=== PATIENT | male | born 1955 | race Caucasian/White ===

== ENCOUNTER 2018-03-20 13:23 | Day surgery (SDC) | payer OTHER ==
[~2018-03-20] VITALS: Ht 190.5 cm; Wt 128.9 kg
[~2018-03-20 13:23] MED LIST: AMLO5; ASPI325; ATEN50; CHLO25B PO; Catapres0.1 MG PO; HYDCHL25; Klor-Con M1010 MEQ PO; LISI20; LOSARTAN-HCTZ1 EAC1 PO; METO100ER PO; SIMV10 PO; TELM80
== END 2018-03-20 15:13 | disposition home or self-care (01) ==
LOC: ORSCSDS 13:23
PROVIDERS: Internal Medicine Gastroenterology
PROC: 0DBM8ZX Excision of Descending Colon, Via Natural or Artificial Opening Endoscopic, Diagnostic (ICD-10-PCS; principal; 2018-03-20 14:45)
PROC: 0DBL8ZX Excision of Transverse Colon, Via Natural or Artificial Opening Endoscopic, Diagnostic (ICD-10-PCS; principal; 2018-03-20 14:45)
DX: R19.5 Other fecal abnormalities (principal); D12.3 Benign neoplasm of transverse colon; D12.4 Benign neoplasm of descending colon; K64.8 Other hemorrhoids; K57.30 Diverticulosis of large intestine without perforation or abscess without bleeding; I10 Essential (primary) hypertension; E78.5 Hyperlipidemia, unspecified; I25.10 Atherosclerotic heart disease of native coronary artery without angina pectoris; G47.33 Obstructive sleep apnea (adult) (pediatric); Z79.82 Long term (current) use of aspirin; Z79.899 Other long term (current) drug therapy
CPT/HCPCS: 88305; J2250; J7120

== ENCOUNTER → 2018-11-22 | Outpatient (CLI) | payer OTHER ==
[2018-11-27 14:12] LABS: M-SPIKE, % Not Observed % (Not Observed); PROTEIN,TOTAL,URINE 9.3 mg/dL (Not Estab.)
== END | disposition home or self-care (01) ==
LOC: LAB EV 04:00
PROVIDERS: Physician Assistant
DX: D89.2 Hypergammaglobulinemia, unspecified (principal); E88.09 Other disorders of plasma-protein metabolism, not elsewhere classified
CPT/HCPCS: 84156; 84166

== ENCOUNTER 2020-08-04 20:27 | Emergency (ER) | payer OTHER ==
[~2020-08-04] VITALS: Ht 190.5 cm; Wt 122.5 kg
[2020-08-04 20:58] LABS: Source, Urine Clean Catch
[2020-08-04 20:59] LABS: BASOPHILS ABSOLUTE AUTO 0.06 K/mm3 (0.00-0.23); BASOPHILS PERCENT AUTO 0 % (0-2); EOSINOPHILS ABSOLUTE AUTO 0.01 K/mm3 (0.00-0.68); EOSINOPHILS PERCENT AUTO 0 % (0-6); Hematocrit 52.5 % (37.0-53.0); Hemoglobin 18.2 g/dL (13.5-17.5); IMMATURE GRAN ABSOLUTE AUTO 0.05 K/mm3 (0.00-0.10); IMMATURE GRAN PERCENT AUTO 0 % (0-1); LYMPHOCYTES ABSOLUTE AUTO 1.82 K/mm3 (0.84-5.20); LYMPHOCYTES PERCENT AUTO 12 % (21-46); MONOCYTES ABSOLUTE AUTO 1.68 K/mm3 (0.16-1.47); MONOCYTES PERCENT AUTO 11 % (4-13); Mean Corpuscular HGB 30.1 pg (26.0-34.0); Mean Corpuscular HGB Conc 34.7 g/dL (31.5-36.5); Mean Corpuscular Volume 87 fL (80-100); Mean Platelet Volume 9.2 fL (9.1-12.4); NEUTROPHILS ABSOLUTE AUTO 11.49 K/mm3 (1.96-9.15); NEUTROPHILS PERCENT AUTO 76 % (41-73); Platelet Count 287 K/mm3 (150-400); RDW Coefficient Variation 12.7 % (11.7-14.2); RDW Standard Deviation 40.5 fL (35.1-46.3); Red Blood Cell Count 6.05 M/mm3 (4.30-5.90); White Blood Cell Count 15.11 K/mm3 (4.00-11.30)
[2020-08-04 21:01] LABS: Appearance, Urine Clear (Clear); Bilirubin, Urine Neg (Neg); Blood, Urine 4+ (Neg); Color, Urine Yellow (P-Yellow); Glucose Qualitative, Urine Neg (Neg); Ketones, Urine 2+ (Neg); Leukocyte Esterase, Urine 1+ (Neg); Nitrite, Urine Neg (Neg); Protein, Urine 3+ (Neg); Specific Gravity, Urine 1.015 (1.003-1.022); Urobilinogen, Urine 1+ (Normal)
[2020-08-04 21:14] LABS: Bacteria Few /hpf; Squamous Epithelial Cells Rare /hpf (Few)
[2020-08-04 21:16] LABS: Albumin, Blood 3.8 g/dL (3.4-5.0); Albumin/Globulin Ratio 0.9 (0.8-1.8); Bilirubin, Total 0.8 mg/dL (0.1-1.0); Bun/Creatinine Ratio 21.8 (12.0-20.0); Calcium, Blood 10.1 mg/dL (8.5-10.1); Creatinine, Blood 1.33 mg/dL (0.60-1.20); Globulin, Blood 4.4 g/dL (2.2-4.0); Potassium, Blood 2.7 mmol/L (3.5-5.5); Total Protein, Blood 8.2 g/dL (6.4-8.2)
[2020-08-04] MEDS ORDERED: ONDA4ODT MM (23:52)
[2020-08-04] MEDS ORDERED: Norco 10-325 T1 EACH PO (23:52)
== END 2020-08-05 00:37 | disposition home or self-care (01) ==
LOC: ER 20:27
PROVIDERS: Physician Assistant
DX: N13.2 Hydronephrosis with renal and ureteral calculous obstruction (principal); I10 Essential (primary) hypertension; I25.10 Atherosclerotic heart disease of native coronary artery without angina pectoris; E78.5 Hyperlipidemia, unspecified; Z79.82 Long term (current) use of aspirin; Z79.899 Other long term (current) drug therapy
CPT/HCPCS: 36415; 74176; 80053; 81001; 83690; 85025; 87086; 93005; 93010; 96365; 96366; 96368; 96375; 96376; 99284-25; A9270; A9270-GY; J1170; J1885; J2405; J3475; J3480; J7030; J7120

== ENCOUNTER → 2024-03-11 | Outpatient (CLI) | payer OTHER ==
[~2024-03-11] MED LIST changes: +Norco 10-325 T1 EACH PO; +ONDA4ODT MM
[2024-03-11 16:24] LABS: BASOPHILS ABSOLUTE AUTO 0.13 K/mm3 (0.00-0.23); BASOPHILS PERCENT AUTO 2 % (0-2); EOSINOPHILS ABSOLUTE AUTO 0.39 K/mm3 (0.00-0.68); EOSINOPHILS PERCENT AUTO 5 % (0-6); Hematocrit 47.7 % (37.0-53.0); Hemoglobin 16.5 g/dL (13.5-17.5); IMMATURE GRAN ABSOLUTE AUTO 0.02 K/mm3 (0.00-0.10); IMMATURE GRAN PERCENT AUTO 0 % (0-1); LYMPHOCYTES PERCENT AUTO 31 % (21-46); MONOCYTES PERCENT AUTO 10 % (4-13); Mean Corpuscular HGB 30.8 pg (26.0-34.0); Mean Corpuscular HGB Conc 34.6 g/dL (31.5-36.5); Mean Corpuscular Volume 89 fL (80-100); Mean Platelet Volume 10.3 fL (9.1-12.4); NEUTROPHILS ABSOLUTE AUTO 4.45 K/mm3 (1.96-9.15); NEUTROPHILS PERCENT AUTO 53 % (41-73); Platelet Count 292 K/mm3 (150-400); RDW Coefficient Variation 13.2 % (11.7-14.2); RDW Standard Deviation 42.8 fL (35.1-46.3); Red Blood Cell Count 5.36 M/mm3 (4.30-5.90); White Blood Cell Count 8.39 K/mm3 (4.00-11.30)
[2024-03-11 17:20] LABS: Alanine Aminotransfer (ALT/SGP 35 U/L (12-78); Albumin, Blood 3.8 g/dL (3.4-5.0); Alk Phos 70 U/L (50-136); Anion Gap 9 mmol/L (3-11); Aspartate Aminotrans (AST/SGOT 19 U/L (12-37); Bilirubin, Total 0.5 mg/dL (0.1-1.0); Blood Urea Nitrogen 28 mg/dL (8-24); Bun/Creatinine Ratio 20.7 (12.0-20.0); CHOL/HDL RATIO 3.6; CO2, Blood 25 mmol/L (21-32); Calcium, Blood 9.6 mg/dL (8.5-10.1); Chloride, Blood 108 mmol/L (98-108); Cholesterol 135 mg/dL (50-200); Creatinine, Blood 1.35 mg/dL (0.60-1.20); Globulin, Blood 3.8 g/dL (2.2-4.0); Glomerular Filtration Rate 57 (60-); Glucose, Blood 102 mg/dL (70-99); HDL Cholesterol 38 mg/dL (>39); LDL/HDL RATIO 1.9; Low Density Lipoprotein Chol 74 mg/dL (0-110); Potassium, Blood 3.5 mmol/L (3.5-5.5); Sodium, Blood 138 mmol/L (136-145); Total Protein, Blood 7.6 g/dL (6.4-8.2); Triglycerides 116 mg/dL (30-160); Very Low Density Lipoprot Chol 23 mg/dL (6-32)
== END | disposition home or self-care (01) ==
LOC: LAB 15:29 → LAB SHORT 15:29
PROVIDERS: Nurse Practitioner Family
DX: I10 Essential (primary) hypertension (principal); E66.01 Morbid (severe) obesity due to excess calories
CPT/HCPCS: 80053; 80061; 83880; 84443; 85025

== ENCOUNTER 2025-02-11 06:39 | Day surgery (SDC) | payer OTHER ==
[~2025-02-11] VITALS: Ht 190.5 cm; Wt 111.2 kg
[2025-02-11] VITALS (15 sets, daily range): BP systolic 103–150; BP diastolic 65–84
[~2025-02-11 06:39] MED LIST changes: -AMLO5; +AMLO5 PO; -ASPI325; +ASPI325 PO; -LISI20; +LISI20 PO; +Lactated Ringer's 1,000 ML IV SCH; +SPIR25 PO
[2025-02-11] MEDS ORDERED: HYDCHL25 PO (06:51)
--- NOTE | 2025-02-11 07:10 | NUR ---
History, Chart, Medications and Allergies reviewed before start of procedure. Patient confirms NPO status and agrees with scheduled surgery. Reports taking all colon prep with clear results. at bedside. agrees to drive patient home and patient agrees no driving for 24 hours post-sedation.
[2025-02-11] MEDS ORDERED: propofoL 40 ML IV ONE (07:18)
--- NOTE | 2025-02-11 07:37 | NUR ---
02/11/25 0737 Mio Chowdary CONFIRMED AND REVIEWED H&P, MEDCICATIONS, ALLERGIES, MEDICAL HISTORY, RESPIRATORY HISTORY, VITAL SIGNS, 3-LEAD EKG, CONSENTS, AND PHYSICIAN ORDERS. PATIENT CONFIRMS NPO STATUS AND AGREES WITH SCHEDULED PROCEDURE. MONITOR INTACT WITH CONTINUOUS PULSE OXIMETRY, CAPNOGRAPHY, 3-LEAD EKG, INTERMITTENT BP. SUPPLEMENTAL O2 TO BE TITRATED THROUGHOUT PROCEDURE TO MAINTAIN O2 SATURATION ABOVE 90%. PATIENT DETERMINED TO BE ASA APPROPRIATE FOR PROPOFOL SEDATION PRIOR TO START OF PROCEDURE BY DR. CORNELL.
--- NOTE | 2025-02-11 08:19 | NUR ---
Discharge instructions reviewed with patient. Patient verbalizes understanding. Copy given to patient to take home. Patient States Post-Procedure ride home has been arranged. Discharged via wheelchair to private car for ride home.
== END 2025-02-11 08:20 | disposition home or self-care (01) ==
LOC: ORSCMMR 06:39 → ORD 07:30 → ORSCMMR 07:30
PROVIDERS: Internal Medicine Gastroenterology
PROC: 0DJD8ZZ Inspection of Lower Intestinal Tract, Via Natural or Artificial Opening Endoscopic (ICD-10-PCS; principal; 2025-02-11 07:30)
DX: K62.5 Hemorrhage of anus and rectum (principal); K57.30 Diverticulosis of large intestine without perforation or abscess without bleeding; I10 Essential (primary) hypertension; E78.00 Pure hypercholesterolemia, unspecified; G47.30 Sleep apnea, unspecified; I25.10 Atherosclerotic heart disease of native coronary artery without angina pectoris; Z79.82 Long term (current) use of aspirin; Z79.899 Other long term (current) drug therapy
CPT/HCPCS: J2704; J7120

== ENCOUNTER → 2025-04-21 | Outpatient (CLI) | payer OTHER ==
[~2025-04-21] MED LIST changes: +HYDCHL25 PO; -Lactated Ringer's 1,000 ML IV SCH
== END ==
LOC: LAB SHORT 11:05 → LAB 11:05
PROVIDERS: Nurse Practitioner Family
DX: Z12.5 Encounter for screening for malignant neoplasm of prostate (principal)
CPT/HCPCS: G0103

== ENCOUNTER 2025-09-13 05:12 | Observation (INO) | payer OTHER ==
[~2025-09-13] VITALS: Ht 190.5 cm; Wt 109.7 kg
[2025-09-13] VITALS (23 sets, daily range): BP systolic 148–198; BP diastolic 81–112
[2025-09-13 05:25] LABS: BASOPHILS ABSOLUTE AUTO 0.09 K/mm3 (0.00-0.23); BASOPHILS PERCENT AUTO 1 % (0-2); EOSINOPHILS ABSOLUTE AUTO 0.20 K/mm3 (0.00-0.68); EOSINOPHILS PERCENT AUTO 2 % (0-6); Hematocrit 51.4 % (37.0-53.0); Hemoglobin 18.0 g/dL (13.5-17.5); IMMATURE GRAN ABSOLUTE AUTO 0.03 K/mm3 (0.00-0.10); IMMATURE GRAN PERCENT AUTO 0 % (0-1); LYMPHOCYTES ABSOLUTE AUTO 2.37 K/mm3 (0.84-5.20); LYMPHOCYTES PERCENT AUTO 22 % (21-46); MONOCYTES ABSOLUTE AUTO 0.82 K/mm3 (0.16-1.47); MONOCYTES PERCENT AUTO 8 % (4-13); Mean Corpuscular HGB Conc 35.0 g/dL (31.5-36.5); Mean Corpuscular Volume 89 fL (80-100); NEUTROPHILS ABSOLUTE AUTO 7.06 K/mm3 (1.96-9.15); NEUTROPHILS PERCENT AUTO 67 % (41-73); NRBC ABSOLUTE 0.00 K/mm3 (0.00-0.02); NRBC Auto 0.0 /100 WBC (0.0-0.2); Platelet Count 285 K/mm3 (150-400); RDW Coefficient Variation 13.3 % (11.7-14.2); RDW Standard Deviation 43.3 fL (35.1-46.3)
[2025-09-13 05:47] LABS: Alanine Aminotransfer (ALT/SGP 40.0 U/L (12-78); Albumin, Blood 4.1 g/dL (3.4-5.0); Albumin/Globulin Ratio 0.9 (0.8-1.8); Anion Gap 9.0 mmol/L (3-11); Aspartate Aminotrans (AST/SGOT 24.0 U/L (12-37); Bilirubin, Total 0.4 mg/dL (0.1-1.0); Blood Urea Nitrogen 25.0 mg/dL (8-24); CO2, Blood 23.0 mmol/L (21-32); Calcium, Blood 10.9 mg/dL (8.5-10.1); Chloride, Blood 105.0 mmol/L (98-108); Creatinine, Blood 1.33 mg/dL (0.60-1.20); Globulin, Blood 4.5 g/dL (2.2-4.0); Glucose, Blood 114.0 mg/dL (70-99); Potassium, Blood 3.3 mmol/L (3.5-5.5); Sodium, Blood 134.0 mmol/L (136-145); Total Protein, Blood 8.6 g/dL (6.4-8.2)
[2025-09-13] MEDS ORDERED: ASPI81CH PO (06:18)
[2025-09-13 06:22] LABS: Thyroid Stimulating Hormone 2.95 uIU/mL (0.360-4.800)
[2025-09-13] MEDS ORDERED: FLU VACC TS2025(65UP)/MF59C/PF 45 MCG/0.5 ML SYRINGE IM SCH (08:05)
[2025-09-13] MEDS ORDERED: Potassium Chloride 10 Meq Tablet SA PO ONE ×2 (08:05→13:35)
[2025-09-13] MEDS ORDERED: HydrALAZINE HCl 20 MG / ML 1ML Vial IV PRN (08:05)
[2025-09-13] MEDS ORDERED: Enoxaparin 40 MG/0.4 ML SYR SC SCH (09:00)
[2025-09-13 10:25] LABS: CHOL/HDL RATIO 2.9; Cholesterol 135 mg/dL (50-200); HDL Cholesterol 47 mg/dL (>39); LDL/HDL RATIO 1.7; Low Density Lipoprotein Chol 79 mg/dL (0-110); Triglycerides 46 mg/dL (30-160); Very Low Density Lipoprot Chol 9 mg/dL (6-32)
[2025-09-13] MEDS ORDERED: Aminophylline 250MG / 10ML 10 ML Vial ONE (12:36)
--- NOTE | 2025-09-13 14:22 | NUR ---
SPOKE WITH DR HENLEY REGARDING ELEVATED MANUAL BP READING. OKAYED FOR PRN HYDRALAZINE DOSE TO BE GIVEN OUTSIDE ORDERED PARAMETERS.
--- NOTE | 2025-09-13 17:23 | NUR ---
SHIFT SUMMARY PATIENT ADMITTED TO MEDICAL FLOOR FROM ED. ONE EPISODE OF REPORTED CHEST PAIN WHILE RECEIVING [place], ELEVATED BLOOD PRESSURES DURING THIS TIME. NO CHANGES TO CARDIAC MONITORING AT THIS TIME. MEDICATED WITH HOME MEDS FOR BP AND ALSO ONE PRN DOSE, CONTINUING TO MONITOR BP'S CLOSELY. NOTIFIED DR HENLEY WHO AGREED WITH THIS PLAN. INDEPENDENT IN ROOM. A/O X4. ABLE TO MAKE NEEDS KNOWN. CALL LIGHT IN REACH.
--- NOTE | 2025-09-13 19:46 | NUR ---
SHIFT ASSESSMENT NOTE: AT AROUND 1930 PATIENT CALLED, RN CHECK ON PATIENT. PATIENT REPORTS TIGHTNESS TO MID-STERNUM, HIS FACE IS FLUSHED. PATIENT STATED, "I HAVE BEEN HAVING THIS EPISODE NORMALLY AT NIGHT, THAT'S THE REASON I CAME IN TO FURTHER ASSESS THIS SYMPTOMS." THIS RN CALLED LAST IRONERJACKSON. PER JACKSON UPON REVIEWING THE PATIENT STRIPS THERE IS AN ST CHANGES FROM 0.2 AT 1840 TO 1.4 AT 1937. VITALS TAKEN; RA 193/112 c HR OF 77 BPM, LA 184/100 c HR OF [address] JIN c THIS CONCERN. PER DR. JIN HE WILL REVIEW PATIENT CHART AND PLACE AN ORDER.
[2025-09-13] MEDS ORDERED: HydrALAZINE HCl 20 MG / ML 1ML Vial IV ONE (20:00)
[2025-09-13] MEDS ORDERED: Mag Hydrox/Al Hydrox/Simeth 18 ML,Lidocaine 2% Viscous Soln 9 ML,Atropine/Scopalam/Hyos... PO PRN (21:35)
[2025-09-13 22:40] LABS: BASOPHILS ABSOLUTE AUTO 0.09 K/mm3 (0.00-0.23); BASOPHILS PERCENT AUTO 1 % (0-2); EOSINOPHILS ABSOLUTE AUTO 0.07 K/mm3 (0.00-0.68); EOSINOPHILS PERCENT AUTO 1 % (0-6); Hematocrit 50.0 % (37.0-53.0); Hemoglobin 17.8 g/dL (13.5-17.5); IMMATURE GRAN ABSOLUTE AUTO 0.04 K/mm3 (0.00-0.10); IMMATURE GRAN PERCENT AUTO 0 % (0-1); LYMPHOCYTES ABSOLUTE AUTO 2.73 K/mm3 (0.84-5.20); LYMPHOCYTES PERCENT AUTO 20 % (21-46); MONOCYTES ABSOLUTE AUTO 1.36 K/mm3 (0.16-1.47); MONOCYTES PERCENT AUTO 10 % (4-13); Mean Corpuscular HGB Conc 35.6 g/dL (31.5-36.5); Mean Corpuscular Volume 86 fL (80-100); NEUTROPHILS ABSOLUTE AUTO 9.35 K/mm3 (1.96-9.15); NEUTROPHILS PERCENT AUTO 69 % (41-73); NRBC ABSOLUTE 0.00 K/mm3 (0.00-0.02); NRBC Auto 0.0 /100 WBC (0.0-0.2); Platelet Count 289 K/mm3 (150-400); RDW Coefficient Variation 13.3 % (11.7-14.2); RDW Standard Deviation 40.9 fL (35.1-46.3)
--- NOTE | 2025-09-13 22:50 | NUR ---
NOTE: AROUND 2205 PATIENT CALLED, BREAK NURSEARIC RESPONDS TO CALL AND THIS RN ARRIVE TO ROOM. PATIENT WAS SITTING ON THE EDGE OF BED REPORTS OF MID-STERNUM TIGHTNESS/PAIN, DIAPHORRETIC, SKIN WARM AND FLUSHED. PATIENT REQUESTING MAALOX, MEDICATED PER EMAR. VITALS TAKEN; SBP 186/98 c HR OF 75 BPM. AT 2210 RECEIVED A CALL FROM PCU GROUN[employer]ING [employer], ADAM. PER JACKSON THERE ARE ST CHANGES AND MORE AT THIS TIME. JACKSON RECOMMENDING ECG. NOTIFIED JOB PLACEMENT COUNSELORREILLY. ECG DONE. JOB PLACEMENT COUNSELOR IN PCU, LIAM AND ICU JOB PLACEMENT COUNSELORALISTAIR MOSER CAME TO ROOM. RAPID RESPONSE CALLED. ALISTAIR ORDERED LABS STAT. PATIENT MEDICATED SL NITRO X1 AND PLACE ON 2L O2. DR. ENRIQUE ARRIVED AND ORDER OT DOSE ASPIRIN 325 MG. PATIENT TRANSFERRED VIA BED BY NURSING ESME LENNON, ICU JOB PLACEMENT COUNSELORALISTAIR MOSER AND PCU CHARGELIAM. ALL PERSONAL BELONGINGS WERE SENT c PATIENT. TR GIVEN TO ICU NURSE.
[2025-09-13] MEDS ORDERED: Tenecteplase 50 MG / Kit IV ONE (22:55)
[2025-09-13 22:58] LABS: Alanine Aminotransfer (ALT/SGP 33.0 U/L (12-78); Albumin, Blood 4.0 g/dL (3.4-5.0); Albumin/Globulin Ratio 1.0 (0.8-1.8); Anion Gap 12.0 mmol/L (3-11); Aspartate Aminotrans (AST/SGOT 19.0 U/L (12-37); Bilirubin, Total 0.5 mg/dL (0.1-1.0); Blood Urea Nitrogen 21.0 mg/dL (8-24); CO2, Blood 20.0 mmol/L (21-32); Calcium, Blood 10.7 mg/dL (8.5-10.1); Chloride, Blood 107.0 mmol/L (98-108); Creatinine, Blood 1.25 mg/dL (0.60-1.20); Globulin, Blood 4.1 g/dL (2.2-4.0); Glucose, Blood 125.0 mg/dL (70-99); Potassium, Blood 2.8 mmol/L (3.5-5.5); Sodium, Blood 136.0 mmol/L (136-145); Total Protein, Blood 8.1 g/dL (6.4-8.2)
[2025-09-13 23:11] LABS: Magnesium, Blood 1.8 mg/dL (1.6-2.4)
[2025-09-13 23:19] LABS: Prothrombin Time Results 12.2 Sec (9.7-11.5)
[2025-09-13] MEDS ORDERED: Heparin Sodium 5000 Units/ML 1ML MDV IV ONE (23:20)
[2025-09-13] MEDS ORDERED: Mag Sulfate 1 GM/D5% 100ML 100 ML IV STA (23:21)
[2025-09-13] MEDS ORDERED: Heparin Sodium,Porcine/0.5 NS 500 ML IV SCH (23:25)
[2025-09-13] MEDS ORDERED: FentaNYL Citrate 50 MCG/ML 2 ML Injection IV PRN (23:25)
--- NOTE | 2025-09-13 23:54 | NUR ---
SUMMARY OF CARE: PT ARRIVED TO ICU RM 5 FROM MEDICAL FLOOR AT 2227. PT ACCOMPANIED BY 2 RNS. PT ALERT & ORIENTED X4, ASSISTING W/TRANSFER BETWEEN BEDS. PUPILS PERRLA, PT FOLLOWING COMMANDS AND COMMUNICATING APPROPRIATELY. AFEBRILE. APPEARS DIAPHORETIC, VISIBLY SWEATING. PT C/O OF CHEST PAIN THAT HE STATES "HAS GOTTEN BETTER" SINCE MEDICATIONS WERE GIVEN ON MEDICAL FLOOR. PT STATES CHEST PAIN HAS BEEN OFF AND ON FOR 1 WK. HE TELLS THIS RN THAT HE HAD A STRESS TEST DONE TODAY AND TEST WAS NORMAL. PT ON 2L O2 VIA NC, LUNGS CLEAR. SATS 100%. DENIES SOB. PT DOES NOT USE OXYGEN AT BASELINE. PER PT, HE WORE A CPAP IN THE PAST BUT HAS NOT WORN IT AT NIGHT "FOR A WHILE." ABD SOFT, BT ACTIVE X4. PT DENIES N/V. NO URINARY ISSUES REPORTED. SKIN REMARKABLE. THIS RN RECEIVED REPORT FROM MEDICAL FLOOR RN AT 2247. DR TOSCANO IN ROOM SHORTLY AFTER PTS ARRIVAL TO ICU RM. INFORMED CONSENT OBTAINED FROM PT FOR ADMINISTRATION OF TNK. MEDICATIONS ADMINSTERED PER ORDERS, SEE EMAR. PT REMAINED A&OX4, ABLE TO MAKE NEEDS KNOWN, PUPILS PERRLA. ARRIVED TO BEDSIDE. AT ABOUT 2330, AMBULANCE TRANSFER TEAM ARRIVED. REPORT GIVEN TO TEAM. PT TRANSFERRED TO AMBULANCE [facility]. AT TIME OF DEPARTURE, 2350, PT HAD POTASSIUM, HEPARIN, AND MAGNESIUM GTTS RUNNING. PT ALSO MEDICATED W/ ORDERED PRN FENTANYL PRIOR TO DEPARTURE DUE TO PT REPORTING RE-OCCURING CHEST PAIN AT 5/10. PT LEFT ICU UNIT AT 2351, VIA RHILBERT, ACCOMPANIED BY EMS TEAM. GIVEN ALL OF PTS BELONGINGS AND FOLLOWING PT TO [facility].
[2025-09-17 20:26] LABS: METANEPHRINE <0.10 nmol/L (0.00-0.49); NORMETANEPHRINE 0.60 nmol/L (0.00-0.89)
== END 2025-09-13 23:51 | disposition short-term general hospital (02) ==
LOC: ER 05:12 → MEDS 05:13 → ICUE 22:25
PROVIDERS: Emergency Medicine; Student in an Organized Health Care Education/Training Program; ADMIT Internal Medicine
DX: I21.19 ST elevation (STEMI) myocardial infarction involving other coronary artery of inferior wall (principal); I16.0 Hypertensive urgency; I10 Essential (primary) hypertension; E87.6 Hypokalemia; E87.1 Hypo-osmolality and hyponatremia; I25.10 Atherosclerotic heart disease of native coronary artery without angina pectoris; E78.5 Hyperlipidemia, unspecified; G47.33 Obstructive sleep apnea (adult) (pediatric); Z95.5 Presence of coronary angioplasty implant and graft; Z79.82 Long term (current) use of aspirin; Z79.899 Other long term (current) drug therapy
CPT/HCPCS: 36415; 71046; 78452; 80053; 80061; 83036; 83690; 83735; 83835; 83880; 84439; 84443; 84484; 85025; 85610; 85730; 93005; 93010; 93017; 96372; 96374; 96375; 99285-25; A9270; A9500; G0378; J0280; J0360; J1644; J1650; J2785; J3010; J3101; J3475; J3480; J7050